=== PATIENT | male | born 1975 | race Caucasian/White ===

== ENCOUNTER 2017-10-09 17:01 | Inpatient (IN) | payer BC, OTHER ==
[~2017-10-09] VITALS: Ht 172.7 cm; Wt 79.4 kg
[~2017-10-09 17:01] MED LIST: SUMA6PEN SQ
--- NOTE | 2017-10-09 18:20 | NUR ---
Pre-admission Note: Client is seen in intake at this time. He is alert and verbally responsive. Affect flat. Appears anxious. Oriented x 4. Educated patient on the admission process. Patient verbalized good understanding. Able to provide consent regarding the admission process. Denies any seizure history. Reports allergies to Tylenol. He verbalizes that he has been in treatment multiple times in the past and has a significant family history of substance abuse. He denies any S/I or H/I. No AV hallucinations noted. COWS 1/CIWA 1. VS: Temp 98.2, Pulse 77, RR 16, BP 107/65, PL 0/10. Reports past medical hx of insomnia and ACL repair 15 years ago. Will continue with the admission process when patient arrives the unit.
[2017-10-09 18:30] VITALS: BP 107/65
--- NOTE | 2017-10-09 18:36 | NUR ---
Admission Note: Admitted a 42 year old male who states that he is voluntarily here to safely detox off of opiate and BZOs under the care of Dr. Jose Stiles. He is alert and verbally responsive. Oriented x 4. Respirations even and unlabored. No SOB noted. Skin warm and dry to touch. Body search done. No contraband found. Skin check done. No skin breakdown noted. Abdomen soft and non-distended. BS (+) in all 4 quadrants. No complains of N/V/D or constipation noted. Voids independently. Ambulatory ad radha with steady gait. He reports past medical hx of insomnia. Allergies to Tylenol. Wishes to be FULL CODE. Follows a regular diet at home. Denies having a PCP. Substance Use as ff: 1. Xanax - orally takes 2 mg PO x 6 weeks. Last use was on 10/09/2017 in AM, 1 mg. 2. Heroin - smokes 1 gram daily x 7 days. Last use was on 10/06/2017 1 gram. 3. Subaxone - sublingually takes 8-12 mg daily x 3 days. Last use was on 10/09/2017, 8 mg. Treatment History: 1. [facility] - x 45 days 2017 2. [facility] [place] - x 30 days in 2004 3. [facility] x [address] Stiles made aware of patient's admission in the unit. Oriented patient on the unit's policy and protocol. Patient verbalized good understanding. All needs met and attended.
[2017-10-09] MEDS ORDERED: QUET200T PO (18:52)
[2017-10-09] MEDS ORDERED: GABA600T2 PO (18:52)
--- NOTE | 2017-10-09 19:13 | NUR ---
End of Shift Notes: Endorsed patient to night nurse. Patient is in his room at this time. All pertinent information explained. Will continue to monitor.
[2017-10-09 20:00] VITALS: BP 107/61
[2017-10-09] MEDS ORDERED: MAGNESIUM HYDROXIDE 30 ML LIQUID UDC PO PRN (20:00)
[2017-10-09] MEDS ORDERED: LOPERAMIDE HCL 2 MG CAPSULE PO PRN ×2 (20:00)
[2017-10-09] MEDS ORDERED: LORAZEPAM 1 MG TABLET PO PRN (20:00)
[2017-10-09] MEDS ORDERED: ONDANSETRON 4 MG/2 ML VIAL IM PRN (20:00)
[2017-10-09] MEDS ORDERED: METHOCARBAMOL 750 MG TABLET PO PRN (20:00)
[2017-10-09] MEDS ORDERED: MAG HYDROX/AL HYDROX/SIMETH 30 ML LIQUID UDC PO PRN (20:00)
[2017-10-09] MEDS ORDERED: IBUPROFEN 600 MG TABLET PO PRN (20:00)
[2017-10-09] MEDS ORDERED: ONDANSETRON ODT 4 MG TAB.RAPDIS SL PRN (20:00)
[2017-10-09] MEDS ORDERED: BUPRENORPHINE HCL 2 MG TAB.SUBL SL PRN (20:00)
[2017-10-09] MEDS ORDERED: ACETAMINOPHEN 325 MG TABLET PO PRN (20:00)
[2017-10-09] MEDS ORDERED: DICYCLOMINE HCL 20 MG TABLET PO PRN (20:00)
[2017-10-09] MEDS ORDERED: MIRALAX 17 GM POWD.PACK PO PRN (20:00)
--- NOTE | 2017-10-09 20:00 | NUR ---
Start of Shift Patient is admitted for Benzo and Opiates Dependence. Pt is AAOx4, no SOB noted and with mild anxiety observed. Pt is ambulatory with steady gait and with no skin issues. Pt verbalized that his withdrawal symptoms are controlled as of the moment but will start to deteriorate anytime. Fall, universal, seizure and safety prec in place. Call light within reach. Latest COWS-2, CIWA-2 .Will continue to monitor.
[2017-10-09 20:14] LABS: *AMPHETAMINE, URINE POSITIVE (NEGATIVE); *BARBITURATE, URINE NEGATIVE (NEGATIVE); *CANNABINOID, URINE NEGATIVE (NEGATIVE); *COCCAINE, URINE NEGATIVE (NEGATIVE); *OPIATE, URINE POSITIVE (NEGATIVE); *PHENCYCLIDINE SCREEN,URINE NEGATIVE (NEGATIVE)
[2017-10-09] MEDS ORDERED: SUMATRIPTAN SUCCINATE 50 MG TABLET PO PRN (20:45)
[2017-10-09] MEDS ORDERED: LORAZEPAM 1 MG TABLET PO SCH (21:00)
[2017-10-09] MEDS ORDERED: BUPRENORPHINE HCL 2 MG TAB.SUBL SL SCH (21:00)
[2017-10-09] MEDS: GABAPENTIN 300 MG CAPSULE PO SCH (21:45)
[2017-10-09 21:54] LABS: BASOPHILS # (AUTO) 0.1 K/uL (0.0-8.0); BASOPHILS % (AUTO) 1.3 % (0.0-2.0); EOSINOPHILS # (AUTO) 0.4 K/uL (0.0-0.7); EOSINOPHILS % (AUTO) 5.7 % (0.0-7.0); HEMATOCRIT 39.3 % (36.7-47.1); HEMOGLOBIN 13.7 g/dL (12.5-16.3); LYMPHOCYTES # (AUTO) 2.2 K/uL (20.0-40.0); LYMPHOCYTES % (AUTO) 34.6 % (20.5-51.5); MEAN CORPUSCULAR HEMOGLOBIN 28.7 uug (23.8-33.4); MEAN CORPUSCULAR HGB CONC 35 g/dL (32.5-36.3); MEAN CORPUSCULAR VOLUME 82.6 fL (73.0-96.2); MONOCYTES # (AUTO) 0.5 K/uL (2.0-10.0); MONOCYTES % (AUTO) 7.4 % (0.0-11.0); NEUTROPHILS # (AUTO) 3.3 K/uL (1.8-8.9); PLATELET COUNT (AUTO) 262 K/uL (152-348); RED BLOOD CELL COUNT(AUTO) 4.76 MIL/uL (4.06-5.63); WHITE BLOOD COUNT (AUTO) 6.5 K/uL (3.6-10.2)
[2017-10-09] MEDS: NICOTINE 14 MG/24HR PATCH TD PRN (21:55)
--- NOTE | 2017-10-09 21:57 | NUR ---
RN note PRN Nicotine Patch Pt requested for Nicotine patch. Administered after teaching patient the risk of smoking while on the patch. Pt verbalized understanding of not smoking while on Nicotine patch.
[2017-10-09 22:12] LABS: ALANINE AMINOTRANSFERASE 80 U/L (16-63); ALKALINE PHOSPHATASE 52 U/L (50-136); ASPARTATE AMINOTRANSFERASE 26 U/L (15-37); BILIRUBIN,TOTAL 0.2 mg/dL (0.2-1.0); CARBON DIOXIDE 32 mmol/L (21-32); CHLORIDE 106 mmol/L (98-107); CREATININE 1.1 mg/dL (0.6-1.3); GLUCOSE 127 mg/dL (74-106); POTASSIUM 3.9 mmol/L (3.5-5.1); TOTAL PROTEIN, SERUM 6.4 g/dL (6.4-8.2); UREA NITROGEN, BLOOD 12 mg/dL (7-18)
[2017-10-09 22:15] LABS: ETHANOL < 3 MG/DL (0-0)
[2017-10-10] VITALS: BP 103/63
[2017-10-10 04:00] VITALS: BP 115/66
--- NOTE | 2017-10-10 07:11 | NUR ---
End of Shift Patient is admitted for Benzo and Opiates Dependence. Pt is AAOx4, no SOB noted and with anxiety observed. Pt is ambulatory with steady gait and with no skin issues. Ativan and Subutex tapers started last night. Both tapers are able to control the withdrawal symptoms. Fall, universal, seizure and safety prec in place. Call light within reach. Latest COWS-2, CIWA-2, slept for 8 hours.Endorsed to AM shift nurse for continuity of care.
--- NOTE | 2017-10-10 07:12 | NUR ---
Start of Shift Notes: Received patient in his room. Alert and oriented x 4. Verbally responsive. Able to make needs known. Respirations even and unlabored. No SOB noted. Skin warm and dry to touch. Abdomen soft and non-distended with (+) BS in all 4 quadrants. No complains of N/V/D or constipation noted. Voids independently. Ambulatory ad radha with steady gait. Patient is a 42 year old male admitted for opiate and BZO dependence who was placed on a 5-day Subutex and 3-day Ativan taper as ordered. No adverse reactions noted. Has past medical hx of insomnia, migraines, ACL repair. Allergic to Tylenol. FULL CODE. Regular diet. On fall and seizure precautions. Educated patient on his current plan of care for the day and his medication regimen. Encouraged oral fluid intake and encouraged group participation to learn new skills to prevent relapse. Will continue to monitor. Addendum: 10/10/17 at 1057 by CYNDI CALLOWAY LVN Patient is not on a 5-day Subutex taper, he is on a 3-day Subutex and 3 day Ativan taper.
[2017-10-10 08:00] VITALS: BP 108/66
[2017-10-10] MEDS: GABAPENTIN 300 MG CAPSULE PO SCH ×2 (08:49→20:25)
[2017-10-10] MEDS: BUPRENORPHINE HCL 2 MG TAB.SUBL SL SCH ×2 (08:49→20:25)
[2017-10-10] MEDS: LORAZEPAM 1 MG TABLET PO SCH ×2 (08:49→20:25)
[2017-10-10] MEDS ORDERED: TUBERCULIN,PURIF.PROT.DERIV. 5 TU/0.1 ML TEST ID ONE (09:00)
[2017-10-10 12:00] VITALS: BP 108/55
[2017-10-10 16:00] VITALS: BP 123/88
[2017-10-10] MEDS: CLONIDINE HCL 0.1 MG TABLET PO PRN (16:16)
--- NOTE | 2017-10-10 16:16 | NUR ---
Bentyl 20 mg/Clonidine 0.1mg/Robaxin 750 mg PO given: COWS 8, noted with chills, hot flashes, abdominal cramps, and 5/10 myalgia related to withdrawal symptoms. Does not currently meet criteria for Subutex administration. Pulse 92 at rest. Medicated patient with Bentyl 20 mg PO, Clonidine 0.1mg PO and Robaxin as ordered. Will monitor for effectiveness.
--- NOTE | 2017-10-10 17:16 | NUR ---
Re-assessment: Clonidine/Robaxin/Bentyl Per patient, PRN Clonidine/Robaxin and Bentyl were effective. Verbalizes that he has less anxiety, agitation, sweats and PL 0/10.
--- NOTE | 2017-10-10 19:02 | NUR ---
End of Shift Notes: Patient initiated his 3-day Subutex and Ativan taper as ordered. No adverse reactions noted. Patient is tolerating current taper well. VS monitored closely. No significant abnormalities noted. Withdrawal symptoms were closely monitored. Initial COWS 9/CIWA 6, patient presented with anxiety, agitation, yawning, myalgia, chills, sweats and hot flashes. Medicated patient with Bentyl 20 mg, Clonidine 0.1mg and Robaxin 750 mg PO as ordered at 1616 with help after 1 hour. Last COWS 8/CIWA7. Per patient, Subutex and Ativan has been effective in reducing his withdrawal symptoms. Unable to participate in group and activities due to his withdrawal symptoms. Compliant with care and treatment. All needs met and attended. Will continue to monitor closely.
--- NOTE | 2017-10-10 19:45 | NUR ---
Start of Shift Notes Received 42 y/o patient admitted on 10/09/2017 for opiates and benzos. Alert and oriented x 4. Respirations are even and unlabored. No SOB noted. Px is on placed on a 3-day Subutex and 3-day Ativan taper as ordered. No adverse reactions noted. Has past medical hx of insomnia, migraines, ACL repair. Allergic to Tylenol. FULL CODE. Regular diet. On fall and seizure precautions. During the rounds at 1945, px reported moderate anxiety, and sweats. Encouraged oral fluid intake. Bed on low position, px refused to put the side rails up, call light within reach. We'll continue to monitor.
[2017-10-10 20:00] VITALS: BP 108/60
--- NOTE | 2017-10-10 20:00 | NUR ---
Side rails Px refused to put up side rails x2. We'll continue to monitor.
[2017-10-10] MEDS: NICOTINE POLACRILEX 4 MG GUM-PK OF TEN BC PRN (20:38)
[2017-10-10] MEDS ORDERED: QUETIAPINE FUMARATE 200 MG TABLET PO SCH (21:00)
[2017-10-10] MEDS: diphenhydrAMINE 50 MG CAPSULE PO PRN (23:58)
[2017-10-10] MEDS: HYDROXYZINE PAMOATE 25 MG CAPSULE PO PRN (23:58)
[2017-10-11] VITALS: BP 107/63
[2017-10-11] MEDS: NICOTINE 14 MG/24HR PATCH TD PRN (00:32)
--- NOTE | 2017-10-11 00:32 | NUR ---
PRN Meds Px requested for Nicotine gum. At 2037, Nicotine gum 4 mg given as PRN med. At 2357, px requested pill to help him sleep. Benadryl 50 mg/cap, 1 cap given PO and Vistaril 25 mg/cap, 1 cap given PO as PRN med. At 31, px requested for nicotine patch, Nicotine patch 14 mg applied on right deltoids as PRN med. We'll continue to monitor.
[2017-10-11 04:00] VITALS: BP 110/67
--- NOTE | 2017-10-11 07:15 | NUR ---
Start of Shift Notes Received 42 y/o patient admitted on 10/09/2017 for opiates and benzos. Alert and oriented x 4. Respirations are even and unlabored. No SOB noted. Px is on placed on a 3-day Subutex and 3-day Ativan taper as ordered. No adverse reactions noted. Has past medical hx of insomnia, migraines, ACL repair. Allergic to Tylenol. FULL CODE. Regular diet. On fall and seizure precautions. During the shift, Px requested for Nicotine gum. At 2037, Nicotine gum 4 mg given as PRN med. At 2357, px requested pill to help him sleep. Benadryl 50 mg/cap, 1 cap given PO and Vistaril 25 mg/cap, 1 cap given PO as PRN med. At 31, px requested for nicotine patch, Nicotine patch 14 mg applied on right deltoids as PRN med. Oral intake of 1,200 ml, voided 3x, No BM. Slept for 1 hour. Encouraged oral fluid intake. Bed on low position, px refused to put the side rails up, call light within reach. We'll continue to monitor. Addendum: 10/11/17 at 0720 by BEL JUAREZ RN This is End of Shift Note
--- NOTE | 2017-10-11 07:45 | NUR ---
END OF SHIFT RECEIVED PT LAYING IN BED, A/O X4, RESPIRATIONS EVEN AND UNLABORED. PT REPORTS NOT BEING ABLE TO SLEEP ALL NIGHT. PT STATES IT IS DUE TO QUITTING SMOKING CIGARETTES. PT REPORTS NICOTINE GUM AND PATCH, OR MEDS GIVEN FOR SLEEP DID NOT HELP. PT IS EXCUSED TO NOT PARTICIPATE IN GROUP THIS AM FOR REST. PT REFUSED TO HAVE SIDE RAILS UP. BED IS IN LOWEST POSITION. CALL LIGHT WITHIN REACH. SAFETY MEASURES IN PLACE. WILL CONTINUE TO MONITOR. Addendum: 10/12/17 at 0727 by KAROLINE CARVALHO RN START OF SHIFT
[2017-10-11 08:00] VITALS: BP 102/63
[2017-10-11] MEDS: BUPRENORPHINE HCL 2 MG TAB.SUBL SL SCH ×3 (09:04→20:30)
[2017-10-11] MEDS: LORAZEPAM 1 MG TABLET PO SCH ×3 (09:05→20:30)
[2017-10-11] MEDS: GABAPENTIN 300 MG CAPSULE PO SCH ×2 (09:05→20:31)
[2017-10-11 11:06] LABS: HEPATITIS B SURFACE AG Negative (Negative)
[2017-10-11 12:00] VITALS: BP 105/62
[2017-10-11] MEDS: NICOTINE POLACRILEX 4 MG GUM-PK OF TEN BC PRN ×2 (14:54→20:31)
--- NOTE | 2017-10-11 14:56 | NUR ---
PRN PT C/O NICOTINE CRAVINGS; NICOTINE GUM 4 MG PRN WAS GIVEN. WILL MONITOR FOR EFFECTIVENESS.
--- NOTE | 2017-10-11 15:56 | NUR ---
REASSESSMENT PT REPORTED MED WAS EFFECTIVE FOR HIS NICOTINE CRAVINGS. WILL CONTINUE TO MONITOR.
[2017-10-11 16:00] VITALS: BP 100/52
--- NOTE | 2017-10-11 18:56 | NUR ---
END OF SHIFT PT IS A 42 Y/O M ADMITTED FOR MEDICALLY SUPERVISED BENZO AND OPIATE W/D. PT IS A/O X4, RESPIRATIONS EVEN AND UNLABORED. PT SLEPT INTERMITTENTLY THROUGHOUT THE DAY AND WAS EXCUSED FOR GROUP DUE TO BEING UNABLE TO SLEEP LAST NIGHT. LAST COWS 4 AND CIWA 3 @1600. PT REFUSED TO HAVE BOTH SIDE RAILS UP. BED IS IN LOWEST POSITION. CALL LIGHT WITHIN REACH. SAFETY MEASURES IN PLACE. WILL CONTINUE TO MONITOR.
--- NOTE | 2017-10-11 19:30 | NUR ---
Start of Shift Notes Received 42 y/o patient admitted on 10/09/2017 for opiates and benzos. Alert and oriented x 4. Respirations are even and unlabored. No SOB noted. Px is on placed on a 3-day Subutex and 3-day Ativan taper as ordered. No adverse reactions noted. Has past medical hx of insomnia, migraines, ACL repair. Allergic to Tylenol. FULL CODE. Regular diet. On fall and seizure precautions. During the rounds at 1930, px reported moderate anxiety. Encouraged to drink water instead of caffeinated drinks. Bed on low position, px refused to put the side rails up, call light within reach. We'll continue to monitor.
[2017-10-11 20:00] VITALS: BP 110/64
[2017-10-11] MEDS: QUETIAPINE FUMARATE 100 MG TABLET PO SCH (20:31)
[2017-10-11] MEDS ORDERED: QUETIAPINE FUMARATE 200 MG TABLET PO SCH (21:00)
[2017-10-11] MEDS: diphenhydrAMINE 50 MG CAPSULE PO PRN (23:29)
[2017-10-11] MEDS: HYDROXYZINE PAMOATE 25 MG CAPSULE PO PRN (23:29)
[2017-10-12] VITALS: BP 98/58
[2017-10-12] MEDS: NICOTINE 14 MG/24HR PATCH TD PRN (00:22)
--- NOTE | 2017-10-12 00:22 | NUR ---
PRN meds Px asked for nicotine gum and patch, also for pills to help him sleep. At 2030, Nicotine gum given. At 2328, Benadryl 50 mg/cap, 1 cap given PO and Vistaril 25 mg/cap, 1 cap given PO. At 002, Nicotine patch 14 mg applied on left deltoids. We'll continue to monitor.
[2017-10-12 04:00] VITALS: BP 102/61
--- NOTE | 2017-10-12 04:00 | NUR ---
COWS and CIWA deferred COWS and CIWA deferred due to the px is awake, to assess if the px is awake per doctor's order. We'll continue to monitor.
--- NOTE | 2017-10-12 07:07 | NUR ---
End of Shift Notes 42 y/o patient admitted on 10/09/2017 for opiates and benzos. Alert and oriented x 4. Respirations are even and unlabored. No SOB noted. Px is on placed on a 3-day Subutex and 3-day Ativan taper as ordered. No adverse reactions noted. Has past medical hx of insomnia, migraines, ACL repair. Allergic to Tylenol. FULL CODE. Regular diet. On fall and seizure precautions. During the shift, px reported moderate anxiety. Px asked for nicotine gum and patch, also for pills to help him sleep. At 2030, Nicotine gum given. At 2328, Benadryl 50 mg/cap, 1 cap given PO and Vistaril 25 mg/cap, 1 cap given PO. At 21, Nicotine patch 14 mg applied on left deltoids. Encouraged to drink water instead of caffeinated drinks. Oral intake of 1,300 ml, voided 2x, No BM. Slept for 3 hours. Bed on low position, px refused to put the side rails up, call light within reach. We'll continue to monitor.
--- NOTE | 2017-10-12 07:28 | NUR ---
START OF SHIFT RECEIVED PT LAYING IN BED, A/O X4, RESPIRATIONS EVEN AND UNLABORED. PT STATES HE WAS UNABLE TO SLEEP LAST NIGHT DUE TO RESTLESSNESS. PT REFUSED TO HAVE BOTH SIDE RAILS UP. BED IS IN LOWEST POSITION. CALL LIGHT WITHIN REACH. SAFETY MEASURES IN PLACE. WILL CONTINUE TO MONITOR.
[2017-10-12 08:00] VITALS: BP 100/63
[2017-10-12] MEDS: GABAPENTIN 300 MG CAPSULE PO SCH ×2 (08:53→14:25)
[2017-10-12] MEDS ORDERED: BUPRENORPHINE HCL 2 MG TAB.SUBL SL SCH (09:00)
[2017-10-12] MEDS ORDERED: LORAZEPAM 1 MG TABLET PO SCH (09:00)
[2017-10-12 12:00] VITALS: BP 108/60
[2017-10-12 16:00] VITALS: BP 96/60
[2017-10-12] MEDS: CLONIDINE HCL 0.1 MG TABLET PO PRN (17:16)
[2017-10-12] MEDS: NICOTINE POLACRILEX 4 MG GUM-PK OF TEN BC PRN (17:22)
--- NOTE | 2017-10-12 17:22 | NUR ---
PRN CLONIDINE 0.1 MG PO PRN AND NICOTINE GUM 4 MG GIVEN FOR HOT FLASHES, SWEATING, MILD ANXIETY, AND NICOTINE CRAVING. WILL MONITOR FOR EFFECTIVENESS.
--- NOTE | 2017-10-12 18:22 | NUR ---
REASSESSMENT PT REPORTED MEDICATIONS WERE EFFECTIVE FOR NICOTINE CRAVINGS AND SWEATING, HOT FLASHES. WILL CONTINUE TO MONITOR.
[2017-10-12] MEDS ORDERED: DIPH50CA37 PO (18:38)
[2017-10-12] MEDS ORDERED: IBUP-1955 PO (18:38)
[2017-10-12] MEDS ORDERED: DICY20TA28 PO (18:38)
[2017-10-12] MEDS ORDERED: CLON0.1T14 PO (18:38)
[2017-10-12] MEDS ORDERED: GABA-534 PO ×2 (18:38)
[2017-10-12] MEDS ORDERED: HYDR-3895 PO (18:38)
[2017-10-12] MEDS ORDERED: METH-406 PO (18:38)
--- NOTE | 2017-10-12 19:12 | NUR ---
END OF SHIFT PT IS A 42 Y/O M ADMITTED FOR MEDICALLY SUPERVISED BENZO AND OPIATE W/D. A/O X4, RESPIRATIONS EVEN AND UNLABORED. PT REPORTS HAVING HOT FLUSHING, SWEATING AND RESTLESSNESS AT 1722; CLONIDINE 0.1 MG PO PRN GIVEN, PT REPORTED EFFECTIVE. LAST COWS 4 AND CIWA 3 @1600. PT REFUSED TO HAVE BOTH SIDE RAILS UP. BED IS IN LOWEST POSITION. CALL LIGHT WITHIN REACH. SAFETY MEASURES IN PLACE. WILL GIVE ALL PERTINENT INFO AND ENDORSEMENT TO PHOTOGRAPHER SCIENTIFIC NURSE.
[2017-10-12 20:00] VITALS: BP 95/52
--- NOTE | 2017-10-12 20:00 | NUR ---
START OF SHIFT NOTE RECEIVED REPORT FROM DAY SHIFT NURSE. PATIENT IS A 42 YEAR OLD MALE ADMITTED FOR OPIATE/BENZO DEPENDENCE. PATIENT COMPLETED 3 DAY ATIVAN AND SUBUTEX TAPER. PATIENT IS MEDICALLY CLEARED TO BE DISCHARGE TOMORROW. PATIENT IS ALLERGIC TO TYLENOL. PATIENT REPORTS PMH OF INSOMNIA AND ACL REPAIR. NO SEIZURE HISTORY. SKIN INTACT. PATIENT WAS GIVEN PRN NICOTINE GUM AND CLONIDINE . LAST COWS 4 AND CIWA 3 . RECEIVED PATIENT IN THE ROOM. PATIENT REPORTS ANXIETY AND CHILLS. DENIES ANY PAIN AT THIS TIME. NO N/V. SAFETY MEASURES IN PLACE. CALL LIGHT IN REACH. WILL CONTINUE TO MONITOR
[2017-10-12] MEDS: QUETIAPINE FUMARATE 100 MG TABLET PO SCH (20:23)
[2017-10-12] MEDS ORDERED: GABAPENTIN 300 MG CAPSULE PO SCH (21:00)
[2017-10-12] MEDS ORDERED: CLONIDINE HCL 0.2 MG TABLET PO SCH (21:00)
--- NOTE | 2017-10-12 21:00 | NUR ---
CLONIDINE 0.2MG HELD PATIENT'S CLONIDINE HELD DUE TO PATIENT'S BP-92/52. CLONIDINE WITH PARAMETER TO HOLD IF BP<90/60
--- NOTE | 2017-10-13 | NUR ---
COWS AND CIWA DEFERRED PATIENT SLEEPING. PATIENT REFUSED. RESPIRATION EVEN AND UNLABORED. SAFETY MEASURES IN PLACE. CALL LIGHT IN REACH. WILL CONTINUE TO MONITOR
--- NOTE | 2017-10-13 04:00 | NUR ---
COWS AND CIWA DEFERRED PATIENT SLEEPING. PATIENT REFUSED. RESPIRATION EVEN AND UNLABORED. SAFETY MEASURES IN PLACE. CALL LIGHT IN REACH. WILL CONTINUE TO MONITOR
--- NOTE | 2017-10-13 07:19 | NUR ---
END OF SHIFT NOTE PATIENT SLEPT 8 HOURS. FLUID INTAKE 850 ML. VOIDED X 2. NO BM. PATIENT IS A 42 YEAR OLD MALE ADMITTED FOR OPIATE/BENZO DEPENDENCE. PATIENT COMPLETED 3 DAY ATIVAN AND SUBUTEX TAPER. PATIENT IS MEDICALLY CLEARED TO BE DISCHARGE TODAY. PATIENT REPORTED ANXIETY AND CHILLS, DENIES ANY PAIN, NO N/V , BEGINNING OF SHIFT. PATIENT IN THE ROOM, MOST OF THE SHIFT, PATIENT TENDS TO BE ISOLATIVE. PATIENT COMPLIANT WITH MEDICATIONS. CLONIDINE 0.2 MG AT 2100 HELD FOR BP-92/52. PATIENT DID NOT REQUIRE ANY PRN MEDICATION. SAFETY MEASURES IN PLACE. CALL LIGHT IN REACH. WILL CONTINUE TO MONITOR. LAST COWS 2 AND CIWA 2.
--- NOTE | 2017-10-13 07:51 | NUR ---
BEGINNING OF SHIFT Patient endorsement report received from night clerk nurse, all pertinent information discussed. Patient is a 42 year old male with admitting Dx: Opiate/bzo dependence. Patient under close observation. Patient completed 3 day subutex and 3 day ativan taper as ordered, patient is scheduled to be discharged this morning, will educate regarding all discharge instructions. patient received no PRNs during night clerk. patient slept for 8 hours, and last cow score of: 2, CIWA: 2. will educate regarding plan of care for the day and medication regimen. safety measures in place. call light kept with in reach. all needs met and rendered, call light kept with in reach, will continue to monitor closely.
[2017-10-13 08:14] VITALS: BP 110/62
[2017-10-13] MEDS: GABAPENTIN 300 MG CAPSULE PO SCH (08:28)
--- NOTE | 2017-10-13 09:30 | NUR ---
DISCHARGE Patient discharged off the unit at 0930, prior to discharge patient was administered all due 0900 medications, well tolerated, patient was also educated and provided with teaching regarding all discharge instructions with good verbal understanding. Patient discharged to home. Noted self motivated towards sobriety. Patients prescriptions and discharge instructions were placed in patient personal duffel bag. Patient off the unit at 0930 in stable condition.
== END 2017-10-13 09:30 | disposition home or self-care (01) | DRG 895 ==
LOC: SRC 17:47
PROVIDERS: ADMIT Internal Medicine; ATTEND Internal Medicine
PROC: HZ2ZZZZ Detoxification Services for Substance Abuse Treatment (ICD-10-PCS; principal; 2017-10-09)
PROC: HZ31ZZZ Individual Counseling for Substance Abuse Treatment, Behavioral (ICD-10-PCS; 2017-10-12)
DX: F13.239 Sedative, hypnotic or anxiolytic dependence with withdrawal, unspecified (principal); F39 Unspecified mood [affective] disorder; F10.21 Alcohol dependence, in remission; G43.909 Migraine, unspecified, not intractable, without status migrainosus; F11.23 Opioid dependence with withdrawal; Z81.1 Family history of alcohol abuse and dependence; G47.00 Insomnia, unspecified; Z79.899 Other long term (current) drug therapy; Z81.8 Family history of other mental and behavioral disorders; F15.10 Other stimulant abuse, uncomplicated; F17.290 Nicotine dependence, other tobacco product, uncomplicated; R73.9 Hyperglycemia, unspecified; R74.0 Nonspecific elevation of levels of transaminase and lactic acid dehydrogenase [LDH]; F41.9 Anxiety disorder, unspecified
CPT/HCPCS: 36415; 80307; 80324; 80346; 80361; 83735; 85025; 86580; 86592; 86705; 86803; 87340; 87806; A4663; G0480; Q0163